=== PATIENT | male | born 1985 | race Caucasian/White ===

== ENCOUNTER 2017-09-16 10:43 | Day surgery (SDC) | payer OTHER ==
[~2017-09-16 10:43] MED LIST: ATROPINE 1 MG/10 ML SYRINGE IV; CEFAZOLIN 1 GM INJ; CEFAZOLIN 2 GM/50 ML (PMX) 50 ML IVPB; DIPHENHYDRAMINE 50 MG INJ IV; EPHEDrine SULFATE 50 MG/5 ML SYG IV; FENTAnyl 50 MCG/ML VIAL IV; HYDROmorphONE (0.2 MG/ML) 10ML SYG IV; LABETALOL HCL 20MG INJ IV; MEPERIDINE 25 MG INJ IV; MIDAZOLAM 1 MG/ML 2 ML INJ IV; OXYCODONE/ACETAMINOPHEN (5/325) TAB PO; hydrALAzine 20 MG INJ IV; morphine (1 MG/ML) 10ML SYRINGE IV
[2017-09-16] MEDS ORDERED: ONDANSETRON 4 MG INJ (11:56)
[2017-09-16] MEDS ORDERED: DEXAMETHASONE 4 MG/ML 1 ML INJ (11:56)
[2017-09-16] MEDS ORDERED: NEOSTIGMINE 3 MG/3 ML SYRINGE (12:54)
[2017-09-16] MEDS ORDERED: PROPOFOL 20 ML (12:54)
[2017-09-16] MEDS ORDERED: LIDOCAINE 2% (SDV) 5 ML INJ (12:54)
[2017-09-16] MEDS ORDERED: ROCURONIUM 50 MG INJ (12:54)
[2017-09-16] MEDS ORDERED: GLYCOPYRROLATE 0.4 MG INJ (12:54)
[2017-09-16] MEDS ORDERED: MIDAZOLAM 1 MG/ML 2 ML INJ (12:55)
[2017-09-16] MEDS ORDERED: FENTAnyl 50 MCG/ML VIAL (12:55)
[2017-09-16] MEDS ORDERED: SUCCINYLCHOLINE CHLORIDE 100 MG/5 ML SYG IV (12:56)
[2017-09-16] MEDS ORDERED: HYDROCODONE/APAP (5/325) TAB PO (14:00)
[2017-09-16] MEDS: HYDROmorphONE (0.2 MG/ML) 10ML SYG IV ×4 (14:22→14:45)
[2017-09-16] MEDS: OXYCODONE/ACETAMINOPHEN (5/325) TAB PO (14:54)
[2017-09-16] MEDS: ONDANSETRON 4 MG INJ IV (14:55)
== END 2017-09-16 17:30 | disposition home or self-care (01) ==
LOC: SDS 10:43
DX: N21.1 Calculus in urethra (principal)
CPT/HCPCS: 52318; 74018; 87086; 88300